=== PATIENT | male | born 1985 | race Caucasian/White ===

== ENCOUNTER 2017-03-30 13:52 | Emergency (ER) | payer OTHER ==
[2017-03-30] MEDS: ADACEL/BOOSTRIX VACCINE (DIPHTH/PERTUSS/ACELL/TETANUS)0.5ML SYR (90715) IM (14:47)
== END 2017-03-30 14:52 | disposition home or self-care (01) ==
LOC: M ED 13:52
DX: S61.233A Puncture wound without foreign body of left middle finger without damage to nail, initial encounter (principal); W27.0XXA Contact with workbench tool, initial encounter; Y99.0 Civilian activity done for income or pay; L03.012 Cellulitis of left finger
CPT/HCPCS: 90715

== ENCOUNTER 2017-04-12 16:11 | Emergency (ER) | payer OTHER ==
[2017-04-12 17:53] LABS: BASO # 0.1 10^3/uL (0.0-0.2); BASO % 0.7 % (0.0-1.0); EOS # 0.2 10^3/uL (0.0-0.50); EOS % 2.8 % (0.0-3.0); HEMATOCRIT 46.3 % (42.0-52.0); HEMOGLOBIN 15.8 g/dl (14.0-18.0); IMMATURE GRANULOCYTE % 0.4 % (0-0); LYMPH # 1.4 10^3/uL (1.5-4.5); LYMPH % 19.2 % (24.0-44.0); MEAN CORPUSCULAR HEMOGLOBIN 31.9 pg (27.0-33.0); MEAN CORPUSCULAR HGB CONC 34.1 g/dl (32.0-36.5); MEAN CORPUSCULAR VOLUME 93.3 fl (80.0-96.0); MONO # 0.7 10^3/uL (0.0-0.8); MONO % 9.7 % (0.0-5.0); NEUTROPHILS # 4.8 10^3/uL (1.8-7.7); NEUTROPHILS % 67.2 % (36.0-66.0); PLATELET COUNT, AUTOMATED 192 10^3/uL (150-450); RED BLOOD COUNT 4.96 10^6/uL (4.30-6.10); RED CELL DISTRIBUTION WIDTH 12.5 % (11.5-14.5); WHITE BLOOD COUNT 7.1 10^3/uL (4.0-10.0)
[2017-04-12 18:05] LABS: ANION GAP 5 MEQ/L (8-16); BLOOD UREA NITROGEN 11 MG/DL (7-18); C REACTIVE PROTEIN QUANTITATIV < 0.30 MG/DL (0.00-0.30); CALCIUM LEVEL 9.1 MG/DL (8.5-10.1); CARBON DIOXIDE LEVEL 31 MEQ/L (21-32); CHLORIDE LEVEL 106 MEQ/L (98-107); CREATININE FOR GFR 1.06 MG/DL (0.70-1.30); GLOMERULAR FILTRATION RATE > 60.0 (>60); GLUCOSE, FASTING 94 MG/DL (70-100); POTASSIUM SERUM 3.9 MEQ/L (3.5-5.1); SODIUM LEVEL 142 MEQ/L (136-145)
[2017-04-12 18:23] LABS: ERYTHROCYTE SEDIMENTATION RATE 3 mm/hr (0-15)
== END 2017-04-12 19:29 | disposition home or self-care (01) ==
LOC: M ED 16:11
DX: S61.233A Puncture wound without foreign body of left middle finger without damage to nail, initial encounter (principal); W27.0XXA Contact with workbench tool, initial encounter; Y92.89 Other specified places as the place of occurrence of the external cause; Y99.0 Civilian activity done for income or pay; N52.9 Male erectile dysfunction, unspecified
CPT/HCPCS: 73130

== ENCOUNTER → 2020-11-19 | Outpatient (CLI) | payer BC ==
[~2020-11-19] MED LIST: KEFL500C17 PO
--- NOTE | 2020-11-19 10:35 | REP ---
INDICATION: PSORIASIS VULGARIS. COMPARISON: None. TECHNIQUE: And upright PA and lateral images of the chest were performed. FINDINGS: The lungs are clear. The heart borders, mediastinum and pulmonary vascular pattern are normal. The upper abdominal bowel gas pattern is normal. There are no bony abnormalities of the chest. IMPRESSION: No evidence of acute cardiopulmonary pathology. <Electronically signed by Griffin Rodriguez > 11/19/20 [id number]
== END ==
LOC: M RAD 09:14
PROVIDERS: ATTEND Nurse Practitioner Family
DX: L40.0 Psoriasis vulgaris (principal)